=== PATIENT | female | born 1995 | race Caucasian/White ===

== ENCOUNTER 2017-04-13 04:10 | Emergency (ER) | payer BC ==
[2017-04-13] MEDS ORDERED: CIPROFLOXACIN HCL 500 MG TABLET PO ONE (05:00)
[2017-04-13] MEDS ORDERED: ONDANSETRON ODT PREPAC 4 MG TAB.RAPDIS PO ONE (05:00)
--- NOTE | 2017-04-13 05:10 | ER NURSING DOCUMENTATION ---
Nurse's Notes [facility] Name:Tiarra Naranjo Age:21 yrs Sex:Female :1995 Arrival Date:04/13/2017 Time:04:10 Bed4 Private MD:Physician, No Diagnosis:Bladder Infection (UTI) Presentation: 04/13 04:13 Presenting complaint: Patient states: rlq pain for 4 hrs with vomiting, nausea. pain is lb sharp, stabbing. Transition of care: patient was not received from another setting of care. Notified ED Physician of Dr. Thomas notified. 04:13 Acuity: DAVIDA 3 lb 04:13 Method Of Arrival: Walk In Triage Assessment: 04:22 General: Appears uncomfortable, Behavior is appropriate for age, pleasant. Pain: lb Complains of pain in right lower quadrant Pain does not radiate. Pain currently is 7 out of 10 on a pain scale. Quality of pain is described as sharp. GI: Abdomen is flat, non- distended Bowel sounds present X 4 quads. Abdomen is tender to palpation in right lower quadrant. 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 sertraline oral 2. control - PMHx: ANXIETY; - PSHx: oral; - Tetanus: < 10 years. - Ebola Screening: : Patient denies exposure to infectious person. Patient denies travel to an Ebola-affected area in the 21 days before illness onset. . - Immunization history: Flu Vaccine < 1 year. - Social history: Smoking status: Patient states was never smoker of tobacco. Patient uses alcohol occasionally. Screenin:26 Infectious Disease Risk None. Abuse screen: Denies threats or abuse. Denies injuries lb from another. Nutritional screening: No deficits noted. Assessment: 04:26 See Triage Assessment done by same RN. lb Vital Signs: 04:23 BP 121 / 64; Pulse 50; Resp 14; Temp 97.7(O); Pulse Ox 92% on R/A; Weight 72.57 kg; lb Height 5 ft. 10 in. (177.80 cm); Pain 7/10; 04:23 Body Mass Index 22.96 (72.57 kg, 177.80 cm) lb ED Course: 04:11 Patient arrived in ED. em2 04:11 Physician, No is Private Physician. em2 04:13 Ro Barbosa is Primary Nurse. lb 04:18 Triage completed. lb 04:20 Urine collected. Clean catch specimen. em1 04:26 Valuables Remains with patient Patient has correct armband on for positive lb identification. Placed in gown. Bed in low position. Call light in reach. Side rails up X 1. 04:27 Roge Thomas MD is Attending Physician. sc Administered Medications: 04:50 Drug: Cipro 500 mg; Route: PO; lb 04:51 Follow up: Response: No adverse reaction lb 04:50 Drug: Zofran 1 tablet; Route: PO; lb 04:51 Follow up: Response: Pharmacy closed - take home med pack lb Point of Care Testing: Urine Dip: 04:25 pH: 6.0; ; Specific [place]: 1.025; Ketones: Trace; Glucose: Negative; Protein: em1 Positive (+++); Leukocytes: Positive; Nitrite: Positive (+) ; Blood: Large (+++); Bilirubin: Negative ; Urobilinogen: Normal Outcome: 04:56 Discharge ordered by . oh 05:10 Discharged to home ambulatory. lb 05:10 Condition: good 05:10 Discharge Assessment: Patient awake, alert and oriented x 3. No cognitive and/or functional deficits noted. Patient verbalized understanding of disposition instructions. 05:10 Instructed on discharge instructions, follow up and referral plans. 05:10 Patient left the ED. 04/14 11:56 Discharge F/U Call: Unable to reach: no answer st Signatures: Josette Moses, RN RN Roge Ham MD MD oh Meinking-tech, Desirae-tech em1 Meinking-reg, Desirae-reg em2 Ro Barbosa
--- NOTE | 2017-04-13 05:10 | ER PHYSICIAN DOCUMENTATION ---
Physician Documentation [facility] Name:Tiarra Naranjo Age:21 yrs Sex:Female :1995 Arrival Date:04/13/2017 Time:04:10 Bed4 Private MD:Physician, No ED Roge Tripp Disposition: 04/13/17 04:56 Discharged to Home/Self Care. Impression: Bladder Infection (UTI). - Condition is Good. - Discharge Instructions: BLADDER INFECTION, Female (Adult). - Prescriptions for Cipro 500 mg Oral Tablet - take 1 tablet by ORAL route every 12 hours for 7 days; 14 tablet. - Medical Reconciliation form form. - Follow up: Emergency Department; When: As needed; Reason: Worsening of condition. - Problem is new. - Symptoms have improved. HPI: 04/13 04:47 This 21 yrs old Female presents to ER via Walk In with complaints of sc Abdominal Pain. 04:47 The patient presents with flank pain, on the right, urinary symptoms, dysuria, sc frequency. Onset: The symptoms/episode began/occurred yesterday. Modifying factors: The symptoms are alleviated by nothing. Associated signs and symptoms: Pertinent positives: nausea, vomiting. Ectopic Risk: No risk factors noted. The patient's method of control includes BCP. 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 sertraline oral 2. control - PMHx: ANXIETY; - PSHx: oral; - Tetanus: < 10 years. - Ebola Screening: : Patient denies exposure to infectious person. Patient denies travel to an Ebola-affected area in the 21 days before illness onset. . - Immunization history: Flu Vaccine < 1 year. - Social history: Smoking status: Patient states was never smoker of tobacco. Patient uses alcohol occasionally. ROS: 04:51 Positive for flank pain, burning with urination. sc 04:51 Constitutional: Negative for fever, chills, and weight loss. sc Eyes: Negative for injury, pain, redness, and discharge. ENT: Negative for injury, pain, and discharge. Neck: Negative for injury, pain, and swelling. Cardiovascular: Negative for chest pain, palpitations, and edema. Respiratory: Negative for shortness of breath, cough, wheezing, and pleuritic chest pain. Back: Negative for injury and pain. Skin: Negative for injury, rash, and discoloration. 04:51 Neuro: Negative for headache, weakness, numbness, tingling, and seizure. 04:51 Abdomen/GI: Positive for abdominal pain. Exam: Constitutional: This is a well developed, well nourished patient who is awake, alert, and in no acute distress. Head/Face: Normocephalic, atraumatic. Eyes: Pupils equal round and reactive to light, extra-ocular motions intact. Lids and lashes normal. Conjunctiva and sclera are non-icteric and not injected. Cornea within normal limits. Periorbital areas with no swelling, redness, or edema. ENT: Nares patent. No nasal discharge, no septal abnormalities noted. Tympanic membranes are normal and external auditory canals are clear. Oropharynx with no redness, swelling, or masses, exudates, or evidence of obstruction, uvula midline. Mucous membranes moist. Neck: Trachea midline, no thyromegaly or masses palpated, and no cervical lymphadenopathy. Supple, full range of motion without nuchal rigidity, or vertebral point tenderness. No meningismus. Chest/axilla: Normal chest wall appearance and motion. Nontender with no deformity. No lesions are appreciated. Cardiovascular: Regular rate and rhythm with a normal S1 and S2. No gallops, murmurs, or rubs. Normal PMI, no JVD. No pulse deficits. Respiratory: Lungs have equal breath sounds bilaterally, clear to auscultation and percussion. No rales, rhonchi or wheezes noted. No increased work of breathing, no retractions or nasal flaring. Back: No spinal tenderness. No costovertebral tenderness. Full range of motion. Skin: Warm, dry with normal turgor. Normal color with no rashes, no lesions, and no evidence of cellulitis. 04:54 Neuro: Awake and alert, GCS 15, oriented to person, place, time, and situation. sc Cranial nerves II-XII grossly intact. Motor strength 5/5 in all extremities. Sensory grossly intact. Cerebellar exam normal. Normal gait. 04:54 Abdomen/GI: Inspection: abdomen appears normal, Bowel sounds: normal, Palpation: abdomen is soft and non-tender, rebound tenderness, is not appreciated. 04:54 : CVA tenderness, on the right. Vital Signs: 04:23 BP 121 / 64; Pulse 50; Resp 14; Temp 97.7(O); Pulse Ox 92% on R/A; Weight 72.57 kg; lb Height 5 ft. 10 in. (177.80 cm); Pain 7/10; 04:23 Body Mass Index 22.96 (72.57 kg, 177.80 cm) lb MDM: 04:36 Patient medically screened. nv 04:54 Differential diagnosis: appendicitis, urinary tract infection. Data reviewed: vital sc signs, nurses notes, lab test result(s), urinalysis, bacteruria, hematuria, pyuria, and as a result, I will discharge patient, administer antibiotics. Counseling: I had a detailed discussion with the patient and/or guardian regarding: the historical points, exam findings, and any diagnostic results supporting the discharge/admit diagnosis, lab results, to return to the emergency department if symptoms worsen or persist or if there are any questions or concerns that arise at home. 04/13 04:31 Order name: HCG, URINE; Complete Time: 04:37 EDMS 04/13 04:37 Interpretation: Normal. nv 04/13 04:20 Order name: Urine Dip; Complete Time: 04:51 lb Dispensed Medications: 04:50 Drug: Cipro 500 mg; Route: PO; lb 04:51 Follow up: Response: No adverse reaction 04:50 Drug: Zofran 1 tablet; Route: PO; lb 04:51 Follow up: Response: Pharmacy closed - take home med pack Point of Care Testing: Urine Dip: 04:25 pH: 6.0; ; Specific [place]: 1.025; Ketones: Trace; Glucose: Negative; Protein: em1 Positive (+++); Leukocytes: Positive; Nitrite: Positive (+) ; Blood: Large (+++); Bilirubin: Negative ; Urobilinogen: Normal Signatures: Roge Thomas MD MD sc Bollock, Lynda
== END 2017-04-13 05:10 | disposition home or self-care (01) ==
LOC: ER 04:10
DX: N39.0 Urinary tract infection, site not specified (principal)
CPT/HCPCS: 84703; 99283